=== PATIENT | female | born 1930 | race Caucasian/White ===

== ENCOUNTER 2016-08-28 12:30 | Inpatient (IN) | payer MEDICARE, OTHER ==
[~2016-08-28] VITALS: Ht 154.9 cm; Wt 67.0 kg
[~2016-08-28 12:30] MED LIST: AMLO-20 PO; ASPI-535 PO; BENAZEPRIL PO; BUSP15TA PO; CELE200C PO; DABI150C PO; DOCU50CA4 PO; FLUO20CA22 PO; ISOS30TA5 PO; LOVA10TA63 PO; METO50TA16 PO; MULT-762 PO; OMEP20CA16 PO; OXYC-284 PO; PRAM0.25 PO
[2016-08-28] MEDS ORDERED: ACETAMINOPHEN 325 MG TAB PO ONE (13:30)
[2016-08-28 13:50] LABS: URINE BLOOD (Dip) POC 2+ (NEGATIVE)
--- NOTE | 2016-08-28 14:22 | RADRPT ---
PROCEDURE: CT Brain without contrast. CLINICAL INDICATION: Neurologic deficit TECHNIQUE: A CT of the brain was performed on multidetector high-resolution CT scanner utilizing a xial sections from the skull base through the vertex without contrast. One or more of the following dose reduction techniques were used: Automated exposure control, Adjustment of the mA and/or kV acc ording to patient size, and/or use of iterative reconstruction technique. DOSE: CTDI = 45 mGy and the DLP = 630 mGy-cm. COMPARISON: Head CT 11/30/2013 FINDINGS: Cortical hypoattenuation of the left inferior frontal lobe and left frontal operculum is new from pr ior. No acute intracranial hemorrhage or midline shift. Patchy hypoattenuation of the cerebral white matter is compatible with chronic microvascular ischemic changes. Vascular calcifications. Prominen ce of the cortical sulci and ventricles are related to mild to moderate cerebral volume loss. Opacif ied left maxillary sinus with chronic pj-osteogenesis. IMPRESSION: Cortical hypoattenuation of the left inferior frontal lobe and left frontal operculum is new from pr ior and suspicious for a subacute infarct. Recommend brain MRI for further evaluation. No acute intracranial hemorrhage or midline shift. 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 Chronic left maxillary sinusitis. A call report was made to Dr. BENSON at 08/28/2016 2:21:15 PM. RPTAT: AA .Tang Gordon MD, MD Date Time Electronically viewed and signed by .Tang Gordon MD, MD on 08/28/2016 14:21 .T/
[2016-08-28 14:33] LABS: LACTIC ACID 1.4 mmol/L (0.5-2.2)
[2016-08-28 14:35] LABS: ADD SCAN DIFF NO
[2016-08-28 14:39] LABS: BASOPHILS % 0.4 % (0.0-2.0); EOSINOPHILS % 0.5 % (0.0-7.0); HEMATOCRIT 40.4 % (37.0-47.0); LYMPHOCYTES # 1.2 10^3/ul (0.8-2.9); LYMPHOCYTES % 20.7 % (15.0-51.0); MEAN CORPUSCULAR HGB CONC 32.2 g/dl (32.0-37.0); MEAN CORPUSCULAR VOLUME 96.2 fl (82.0-101.0); MEAN PLATELET VOLUME 10.2 fl (7.4-10.4); MONOCYTE # 1.2 10^3/ul (0.3-0.9); MONOCYTES % 20.7 % (0.0-11.0); NEUTROPHIL # 3.3 10^3/ul (1.6-7.5); NEUTROPHILS % 57.2 % (39.0-77.0); PLATELET COUNT 225 10^3/UL (140-415); RED CELL DISTRIBUTION WIDTH 14.1 % (11.5-14.5); WHITE BLOOD COUNT 5.7 10^3/ul (4.8-10.8)
[2016-08-28 14:47] LABS: ADD UMIC YES; UR ASCORBIC ACID 40 mg/dL (NEGATIVE); UR BILIRUBIN (Dip) NEGATIVE (NEGATIVE); UR BLOOD (Dip) 1+ mg/dL (NEGATIVE); UR CLARITY SLIGHTLY CLOUDY (CLEAR); UR COLOR AMBER (YELLOW); UR GLUCOSE (Dip) NEGATIVE (NEGATIVE); UR KETONES (Dip) TRACE mg/dL (NEGATIVE); UR LEUKOCYTE ESTERASE (Dip) TRACE Leu/ul (NEGATIVE); UR MUCUS FEW /HPF (NONE SEEN); UR NITRITE (Dip) NEGATIVE (NEGATIVE); UR RBC 18 /HPF (0-5); UR SPECIFIC GRAVITY (Dip) 1.026 (1.003-1.030); UR SQUAMOUS EPITHELIAL CELL FEW /HPF (FEW); UR TOTAL PROTEIN (Dip) 1+ mg/dl (NEGATIVE); UR UROBILINOGEN (Dip) 1+ mg/dL (NEGATIVE)
--- NOTE | 2016-08-28 14:50 | RADRPT ---
PROCEDURE: XR Chest. CLINICAL INDICATION: Sepsis TECHNIQUE: Chest AP portable. COMPARISON: CT chest 01/07/2015 FINDINGS: The mediastinal structures are unremarkable. There is calcification of the thoracic aorta (consiste nt with atherosclerosis). There is mild cardiomegaly. The pulmonary vascularity is normal. There is moderate right diaphragmatic elevation. No consolidation is identified. The pleural spaces are unremarkable. There are senescent changes of the axial skeleton. IMPRESSION: Calcification of the thoracic aorta (consistent with atherosclerosis) Mild cardiomegaly No active intrathoracic disease RPTAT: HGDB .Jameson Del Rio MD, Date Time Electronically viewed and signed by .Jameson Del Rio MD, on 08/28/2016 14:49 .B/
[2016-08-28 14:55] LABS: INR 1.03; PROTIME 13.5 Sec (12.2-14.2); PT RATIO 1.1
[2016-08-28 14:56] LABS: PARTIAL THROMBOPLASTIN TIME 33.4 Sec (25.0-35.0)
[2016-08-28 14:59] LABS: ALANINE AMINOTRANSFERASE 43 IU/L (13-69); ALBUMIN 4.7 g/dl (3.3-4.9); ALBUMIN/GLOBULIN RATIO 1.62; ALKALINE PHOSPHATASE 91 IU/L (42-121); ANION GAP 15 (8-16); ASPARTATE AMINO TRANSFERASE 42 IU/L (15-46); BILIRUBIN,INDIRECT 0.6 mg/dl (0-1.1); BILIRUBIN,TOTAL 0.6 mg/dl (0.2-1.3); BLOOD UREA NITROGEN 32 mg/dl (7-20); CALCIUM 9.9 mg/dl (8.4-10.2); CARBON DIOXIDE 27 mmol/L (21-31); CHLORIDE 100 mmol/L (97-110); CREATININE 1.02 mg/dl (0.44-1.00); GLUCOSE 103 mg/dl (70-220); SODIUM 137 mmol/L (135-144); TOTAL PROTEIN 7.6 g/dl (6.1-8.1)
[2016-08-28 15:00] LABS: ETHANOL < 10.0 mg/dl; SALICYLATE < 1.0 mg/dl (5.0-30.0)
[2016-08-28] MEDS ORDERED: METO-448 PO (15:15)
[2016-08-28] MEDS ORDERED: SOLI10TA5 PO (15:16)
[2016-08-28] MEDS ORDERED: HYDR-902 PO (15:16)
[2016-08-28] MEDS ORDERED: LOVA20TA PO (15:17)
[2016-08-28] MEDS ORDERED: OLOP2.5D5 BOTH EYES (15:21)
[2016-08-28] MEDS ORDERED: OLAN2.5T4 PO (15:21)
[2016-08-28] MEDS ORDERED: ALBU18HF INHALATION (15:22)
[2016-08-28] MEDS ORDERED: OMEP20CA16 PO (15:23)
[2016-08-28] MEDS ORDERED: DABI150C PO (15:24)
[2016-08-28] MEDS ORDERED: FLUO40CA PO (15:24)
[2016-08-28] MEDS ORDERED: ASPIRIN 81 MG TAB PO ONE (15:30)
[2016-08-28] MEDS ORDERED: SOD CHLORIDE 0.9% 500 ML IV ONE (15:30)
[2016-08-28 15:32] LABS: BARBITURATES Negative (NEGATIVE); BENZODIAZEPINES Negative (NEGATIVE); CANNABINOIDS Negative (NEGATIVE); COCAINE Negative (NEGATIVE); OPIATES Negative (NEGATIVE); TROPONIN-I < 0.012 ng/ml (0.00-0.12)
[2016-08-28] MEDS ORDERED: HYDROCODONE/APAP (10/325) TAB PO PRN (18:00)
--- NOTE | 2016-08-28 19:24 | HP ---
DATE OF ADMISSION: 08/28/2016 CHIEF COMPLAINT: Confusion, altered mental status. HISTORY OF PRESENT ILLNESS: This 86-year-old female who has a history of paroxysmal atrial fibrillation, hypertension, hypercholesterolemia was noted by her attendant on the day prior to adm ission to be confused and was talking as if she has some delusions or hallucinations. The attendant called my office and was told to bring the patient into the emergency room. However, patient refus ed to be brought into the ER yesterday. This morning, the attendant noticed that she was still talk ing in a confused manner and brought her to the emergency room where the head CT found a subacute st roke. The patient is admitted for altered mental status possibly due to cerebrovascular accident. Of note is that the patient says that she was told by order detailer to discontinue Pradaxa about 3 we eks prior to admission. Patient's attendant and her family also thought that maybe she was confused due to a neighbor's a couple of days prior to admission. The patient also has a history of h allucinations with Percocet, but she has been taking hydrocodone for several months now for her ongo ing diffuse osteoarthritis and lumbar spine and disk disease. PAST MEDICAL HISTORY: 1. Atrial fibrillation. 2. Chronic obstructive pulmonary disease. 3. Bilateral lung nodules. 4. Coronary artery disease. 5. Hypercholesterolemia. 6. Hypertension. 7. Lumbar spine degenerative disk disease. 8. Osteoarthritis. 9. Osteoporosis. 10. Overactive bladder with urinary incontinence. 11. Restless leg syndrome. 12. Right breast cancer status post mastectomy, chemotherapy, and radiation in 2001 and stopped shane oxifen in 2006. 13. Status post total abdominal hysterectomy in 1980. 14. Status post cholecystectomy for gallstone pancreatitis in 2011. 15. Status post right knee arthroscopy and then right knee total replacement in 2012. 16. Major depression. MEDICATIONS: 1. Metoprolol tartrate 25 mg p.o. b.i.d. 2. Pradaxa 150 mg p.o. b.i.d. 3. VESIcare 10 mg p.o. at bedtime. 4. Lovastatin 20 mg p.o. daily. 5. Olanzapine 2.5 mg p.o. daily. 6. Omeprazole 20 mg p.o. b.i.d. 7. Fluoxetine 40 mg p.o. daily. 8. Ventolin HFA 2 puffs q.6 hours as needed for shortness of breath. 9. Ames 10/325 one p.o. t.i.d. as needed for pain. 10. Lasix 20 mg p.o. daily as needed for ankle swelling. 11. Potassium chloride 10 mEq p.o. daily as needed for when she is taking Lasix. 12. Prolia 60 mg injection every 6 months. 13. Pazeo eye drops as needed for allergy. SOCIAL HISTORY: The patient used to smoke. She quit many decades ago. She drinks wine only occasi onally and the patient lives alone in her own apartment. She has no children, but a niece lives in [place]. There is an attendant who comes to her house about 4 hours a day for 4 days a week. FAMILY HISTORY: Patient's mother of unknown cause. She has no siblings, one of her cousins garcia s diabetes, and one has arthritis. PHYSICAL EXAMINATION: GENERAL: Well-developed, well-nourished female who is awake and alert. She is oriented to her own name and recognizes me as her doctor, but does not know the date, year, day, or month, and does not know the precise address where she lives. She does know the street and the city where she lives. VITAL SIGNS: Temperature T-max of 100.6, blood pressure 104/57, pulse of 107, respiration rate 20, O2 saturation 94% on room air. HEENT: Pupils are equally round and reactive. Oropharynx clear. LUNGS: Clear to auscultation bilaterally. No wheezing or rubs. CARDIAC: Irregular irregular. ABDOMEN: Active bowel sounds, soft, nondistended, nontender. EXTREMITIES: No clubbing, cyanosis, or edema. The patient does have brownish pigmentation in the f eet and ankles consistent with stasis dermatitis. NEUROLOGIC: Cranial nerves II through XII grossly intact. Motor: Patient has 4+/5 motor strength on bilateral upper extremities and bilateral lower extremities. Sensory: She is intact to light to uch throughout. Mental status is awake, alert, and only partially oriented. LABORATORY: WBC 5.7, hemoglobin 13.0, hematocrit 40.4, platelet count 225,000. Sodium 137, potassi um 5.0, chloride 100, bicarbonate 27, BUN 32, creatinine 1.02, glucose 103. Liver enzymes within no rmal limits. Troponin is less than 0.012. PT 13.5, INR of 1.03, PTT of 33.4. Her urine shows a pH of 5.0, specific gravity of 1.026. There is 1+ urine protein, 1+ urine ketones, 2+ urine blood, no nitrites or bilirubin, and trace leukocyte esterase. There are 18 red blood cells per high power f ield and 3 WBC with few squamous epithelial and mucus. Urine culture and blood cultures are pending at this time. Her chest x-ray shows calcification of the thoracic aorta consistent with atheroscle rosis. There is mild cardiomegaly. No active intrathoracic disease. Her EKG shows atrial fibrilla tion, rate controlled. Her brain CT without contrast shows cortical hypoattenuation of the left inf erior frontal lobe and left frontal operculum, which is new from prior CT scan and suspicious for a subacute infarct. There are also chronic microvascular disease and intracranial atherosclerosis. T here is also a chronic left maxillary sinusitis. IMPRESSION: 1. Altered mental status, most likely due to recent stroke, but patient does have a dirty urine and will need to admit to monitor the patient overnight. We will also obtain an MRI to clarify the ext ent of the cerebrovascular accident. Check her carotid Dopplers, if it has not been done recently b y cardiology. I will resume patient's Pradaxa for now, but inquire the order detailer regarding maybe starting her on another anticoagulant, if there is a reason why she was taken off of Pradaxa. Will need to rely on family members and attendant to monitor the patient's mental status, since some of her delusions only evident to the family. Apparently patient was saying that she was supposed to be marrying a neighbor who is no longer there and saying some other statements which did not make sens e. We also will go ahead and start her on some IV antibiotics since she did have a low grade temper ature when she came in and her urine is suggestive of a possible urine infection. 2. Other medical problems. Continue current medications. Dictated By: SHERI MORENO MD DP/NTS Conf#: [id number] DID#: [id number]
--- NOTE | 2016-08-28 19:49 | ERA ---
ER Documentation Chief Complaint Date/Time DATE: 08/28/16 Chief Complaint pt confused x 1 day a&o x1, temp 100.6 HPI The patient is a 86-year-old female, presenting to the ER because he has been confused for 1 day according to the caregiver. She is unable to provide any history. The history is obtained from the caregiver. She is forgetful, less talkative. She denies headache, neck pain, chest pain, dyspnea, abdominal pain , vomiting, dysuria, diarrhea, constipation. She does not smoke or drink Past medical history: Hypertension, history of right breast cancer Past surgical history: Right mastectomy ROS All systems reviewed and are negative except as per history of present illness. Medications Home Meds Reported Medications Fluoxetine Hcl* (Fluoxetine Hcl*) 40 Mg Capsule, 40 MG PO DAILY, CAP 08/28/16 Dabigatran Etexilate Mesylate* (Pradaxa*) 150 Mg Capsule, 150 MG PO BID, CAP 08/28/16 Omeprazole* (Omeprazole*) 20 Mg Capsule.dr, 20 MG PO BID, #60 CAP 08/28/16 Albuterol Sulfate* (Ventolin HFA*) 18 Gm Hfa.aer.ad, 2 PUFF INHALATION Q6H Y for PRN, #1 INHALER 08/28/16 Olanzapine* (Zyprexa*) 2.5 Mg Tablet, 2.5 MG PO DAILY, #30 TAB 08/28/16 Olopatadine HCl (Pazeo) 2.5 Ml Drops, 1 DROP BOTH EYES DAILY Y for PRN, BOTTLE 08/28/16 Lovastatin* (Lovastatin*) 20 Mg Tablet, 20 MG PO DAILY, TAB 08/28/16 Hydrocodone/Acetaminophen (Metamora 10-325 Tablet) 1 Each Tablet, 1 EACH PO TID, TAB 08/28/16 Solifenacin* (Vesicare*) 10 Mg Tablet, 10 MG PO QHS, TAB 08/28/16 Metoprolol Tartrate* (Lopressor*) 25 Mg Tab, 25 MG PO BID, #60 TAB 08/28/16 Discontinued Reported Medications Fluoxetine Hcl* (Fluoxetine Hcl*) 20 Mg Capsule, 20 MG PO DAILY, CAP 06/22/14 Omeprazole* (Omeprazole*) 20 Mg Capsule.dr, 20 MG PO DAILY, CAP 06/22/14 Metoprolol Succinate* (Toprol XL*) 50 Mg Tab.er.24h, 50 MG PO DAILY, TAB 06/22/14 Celecoxib* (Celebrex*) 200 Mg Capsule, 200 MG PO DAILY, CAP 07/21/13 Pramipexole* (Pramipexole*) 0.25 Mg Tablet, 0.25 MG PO HS 07/21/13 Lovastatin* (Lovastatin*) 10 Mg Tablet, 20 MG PO HS 07/21/13 Docusate Sodium* (Colace*) 50 Mg Capsule, 100 MG PO HS 07/21/13 Dabigatran Etexilate Mesylate* (Pradaxa*) 150 Mg Capsule, 150 MG PO BID, CAP 07/21/13 Buspirone Hcl* (Buspar*) 15 Mg Tablet, 15 MG PO BID, TAB 07/21/13 Amlodipine-Benazepril (Amlodipine-Benazepril) 1 Cap Capsule, 1 CAP PO DAILY 07/21/13 Isosorbide Mononitrate* (Isosorbide Mononitrate*) 30 Mg Tab.er.24h, 30 MG PO DAILY, TAB 07/21/13 [Benazepril 5-20] No Conflict Check, 1 TAB PO DAILY 07/21/13 Multivitamin (MULTI-VITAMIN DAILY) 1 Each Tablet, 1 EACH PO DAILY 07/21/13 Aspirin Ec (Aspir 81) 81 Mg Tablet.dr, 81 MG PO DAILY 06/08/11 Oxycodone Hcl-Acetaminophen* (Percocet*) 1 Tab Tablet, 1 TAB PO Q6 06/08/11 Allergies Allergies: Coded Allergies: Penicillins (Verified Allergy, Mild, 08/28/16) strawberry (Verified Adverse Reaction, Unknown, RASHES, 08/28/16) PMhx/Soc History of Surgery: No Anesthesia Reaction: No Hx Neurological Disorder: No Hx Respiratory Disorders: No Hx Cardiac Disorders: Yes (HTN, HEART PROBLEM) Hx Psychiatric Problems: No Hx Miscellaneous Medical Probl: No (ARTHRITIS) Hx Alcohol Use: Yes (UNABLE TO VERIFY) Hx Substance Use: No Hx Tobacco Use: No Smoking Status: Never smoker Physical Exam Vitals Vital Signs Date Time Temp Pulse Resp B/P Pulse Ox O2 Delivery O2 Flow Rate FiO2 08/28/16 17:39 98.1 79 23 123/84 93 Room Air 08/28/16 15:25 99.3 93 20 137/91 94 Room Air 08/28/16 12:42 100.6 107 20 104/57 94 Physical Exam Const: No acute distress. Head: Atraumatic. Eyes: Normal Conjunctiva. ENT: Normal External Ears, Nose and Mouth. Neck: Full range of motion. No meningismus. Resp: Irregularly irregular Cardio: Regular rate and rhythm. Abd: Soft, non distended, normal bowel sounds, non tender. Skin: No petechiae or rashes. Back: No midline or flank tenderness. Ext: No cyanosis, or edema. Neur: Awake and alert. No focal deficit. Limited due to her condition Psych: Limited due to the condition Result Diagram: 08/28/16 1415 08/28/16 1415 Results 24 hrs Laboratory Tests Test 08/28/16 13:15 08/28/16 13:20 08/28/16 13:52 08/28/16 14:15 Lactic Acid Level 1.4mmol/L Ammonia 14umol/l Bedside Glucose 101mg/dL Bedside Urine pH (LAB) 6.0 Bedside Urine Protein (LAB) 1+ Bedside Urine Glucose (UA) Negative Bedside Urine Ketones (LAB) 1+ Bedside Urine Blood 2+ Bedside Urine Nitrite (LAB) Negative Bedside Urine Leukocyte Esterase (L Negative White Blood Count 5.710^3/ul Red Blood Count 4.2010^6/ul Hemoglobin 13.0g/dl Hematocrit 40.4% Mean Corpuscular Volume 96.2fl Mean Corpuscular Hemoglobin 31.0pg Mean Corpuscular Hemoglobin Concent 32.2g/dl Red Cell Distribution Width 14.1% Platelet Count 16326^3/UL Mean Platelet Volume 10.2fl Neutrophils % 57.2% Lymphocytes % 20.7% Monocytes % 20.7% Eosinophils % 0.5% Basophils % 0.4% Nucleated Red Blood Cells % 0.0/100WBC Neutrophils # 3.310^3/ul Lymphocytes # 1.210^3/ul Monocytes # 1.210^3/ul Eosinophils # 0.010^3/ul Basophils # 0.010^3/ul Nucleated Red Blood Cells # 0.010^3/ul Prothrombin Time 13.5Sec Prothrombin Time Ratio 1.1 INR International Normalized Ratio 1.03 Activated Partial Thromboplast Time 33.4Sec Urine Color ZONIA Urine Clarity SLIGHTLY CLOUDY Urine pH 5.0 Urine Specific [place] 1.026 Urine Ketones TRACEmg/dL Urine Nitrite NEGATIVEmg/dL Urine Bilirubin NEGATIVEmg/dL Urine Urobilinogen 1+mg/dL Urine Leukocyte Esterase TRACELeu/ul Urine Microscopic RBC 18/HPF Urine Microscopic WBC 3/HPF Urine Squamous Epithelial Cells FEW/HPF Urine Mucus FEW/HPF Urine Hemoglobin 1+mg/dL Urine Glucose NEGATIVEmg/dL Urine Total Protein 1+mg/dl Sodium Level 137mmol/L Potassium Level 5.0mmol/L Chloride Level 100mmol/L Carbon Dioxide Level 27mmol/L Anion Gap 15 Blood Urea Nitrogen 32mg/dl Creatinine 1.02mg/dl Glucose Level 103mg/dl Calcium Level 9.9mg/dl Total Bilirubin 0.6mg/dl Direct Bilirubin 0.00mg/dl Indirect Bilirubin 0.6mg/dl Aspartate Amino Transf (AST/SGOT) 42IU/L Alanine Aminotransferase (ALT/SGPT) 43IU/L Alkaline Phosphatase 91IU/L Troponin I < 0.012ng/ml Total Protein 7.6g/dl Albumin 4.7g/dl Globulin 2.90g/dl Albumin/Globulin Ratio 1.62 Salicylates Level < 1.0mg/dl Urine Opiates Screen Negative Urine Barbiturates Negative Urine Amphetamines Screen Negative Urine Benzodiazepines Screen Negative Urine Cocaine Screen Negative Urine Cannabinoids Negative Ethyl Alcohol Level < 10.0mg/dl Current Medications Medications (Trade) Dose Ordered Sig/Matthew Route PRN Reason Start Time Stop Time Status Last Admin Dose Admin Acetaminophen 650 mg 650 mg ONCE ONCE PO 08/28/16 13:30 08/28/16 13:31 DC 08/28/16 15:20 Sodium Chloride (NS) 500 ml @ 500 mls/hr Q1H ONCE IV 08/28/16 15:30 08/28/16 16:29 DC 08/28/16 15:22 Aspirin (Aspirin) 162 mg ONCE ONCE PO 08/28/16 15:30 08/28/16 15:31 DC 08/28/16 15:21 Albuterol (Proventil (O.r. Use Only)) 2 puff Q6H PRN INH PRN 08/28/16 18:00 UNV Dabigatran (PRADaxa) 150 mg BID PO 08/28/16 21:00 UNV Fluoxetine HCl (Prozac) 40 mg DAILY PO 08/29/16 09:00 UNV Acetaminophen/ Hydrocodone Bitart (Metamora (10/)) 1 tab TID PRN PO pain 08/28/16 18:00 UNV Metoprolol Tartrate (Lopressor) 25 mg BID PO 08/28/16 21:00 UNV Olanzapine (Zyprexa) 2.5 mg DAILY PO 08/29/16 09:00 UNV Solifenacin (Vesicare) 10 mg QHS PO 08/28/16 21:00 UNV Miscellaneous Information 20 mg DAILY PO 08/29/16 09:00 UNV Miscellaneous Information 20 mg BID PO 08/28/16 21:00 UNV Procedures/MDM [place] [id number] Radiology Main Line: [phone] DIAGNOSTIC IMAGING REPORT Patient: INES CYR : 1930 Age: 86 Sex: F MR #: [id number] DOS: 08/28/16 1310 Ordering MD: RADHA BENSON MD Location: E/R Room/Bed: PROCEDURE: XR Chest. CLINICAL INDICATION: Sepsis TECHNIQUE: Chest AP portable. COMPARISON: CT chest 01/07/2015 FINDINGS: The mediastinal structures are unremarkable. There is calcification of the thoracic aorta (consistent with atherosclerosis). There is mild cardiomegaly. The pulmonary vascularity is normal. There is moderate right diaphragmatic elevation. No consolidation is identified. The pleural spaces are unremarkable. There are senescent changes of the axial skeleton. IMPRESSION: Calcification of the thoracic aorta (consistent with atherosclerosis) Mild cardiomegaly No active intrathoracic disease RPTAT: HGDB .Jameson Del Rio MD, Date Time Electronically viewed and signed by .Jameson Del Rio MD, on 08/28/2016 14:49 .B/ CC: RADHA BENSON MD [place] [id number] Radiology Main Line: [phone] DIAGNOSTIC IMAGING REPORT Patient: INES CYR : 1930 Age: 86 Sex: F [id number] DOS: 08/28/16 1310 Ordering MD: RADHA BENSON MD Location: E/R Room/Bed: PROCEDURE: CT Brain without contrast. CLINICAL INDICATION: Neurologic deficit TECHNIQUE: A CT of the brain was performed on multidetector high-resolution CT scanner utilizing axial sections from the skull base through the vertex without contrast. One or more of the following dose reduction techniques were used: Automated exposure control, Adjustment of the mA and/or kV according to patient size, and/or use of iterative reconstruction technique. DOSE: CTDI = 45 mGy and the DLP = 630 mGy-cm. COMPARISON: Head CT 11/30/2013 FINDINGS: Cortical hypoattenuation of the left inferior frontal lobe and left frontal operculum is new from prior. No acute intracranial hemorrhage or midline shift. Patchy hypoattenuation of the cerebral white matter is compatible with chronic microvascular ischemic changes. Vascular calcifications. Prominence of the cortical sulci and ventricles are related to mild to moderate cerebral volume loss. Opacified left maxillary sinus with chronic pj-osteogenesis. IMPRESSION: Cortical hypoattenuation of the left inferior frontal lobe and left frontal operculum is new from prior and suspicious for a subacute infarct. Recommend brain MRI for further evaluation. No acute intracranial hemorrhage or midline shift. 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 Chronic left maxillary sinusitis. A call report was made to Dr. BENSON at 08/28/2016 2:21:15 PM. RPTAT: AA .Tang Gordon MD, MD Date Time Electronically viewed and signed by .Tang Gordon MD, MD on 08/28/2016 14:21 .T/ CC: RADHA BENSON MD EKG: Read by emergency physician Rate/Rhythm: Atrial fibrillation 81 beats/min QRS, ST, T-waves: No ST elevation, no T inversion Impression: Abnormal EKG MEDICAL MAKING DECISION: The patient is a 86-year-old female, presenting with acute encephalopathy most likely due to acute CVA, acute dehydration. She was treated with Tylenol for fever, normal saline 500 mL for acute dehydration, aspirin 160 mg p.o. for acute CVA The differential diagnoses considered include but are not limited to medication non-compliance, alcohol intoxication or withdrawal, drug intoxication or withdrawal, endocrine disorder, trauma, CVA, tumor, metabolic encephalopathy, septic encephalopathy. Critical Care: Time: 35 minutes excluding all billable procedures. Treatments/Evaluations: Close monitoring and treatment of unstable vital signs, cardiorespiratory, and neurologic status, while maintaining tight balance of fluid, respiratory, and cardiac interventions. Departure Diagnosis: Primary Impression: Acute CVA (cerebrovascular accident) Additional Impressions: Encephalopathy Dehydration Condition: Stable Comments I discussed the findings with the patient. I discussed the patient with her physician Dr. De La Garza who was made aware of the lab, the treatment, the patient condition. The patient is admitted to telemetry at 3:05 PM RAHDA BENSON MD Aug 28, 2016 19:49
[2016-08-28] MEDS: SOLIFENACIN 5 MG TAB PO SCH (21:00)
[2016-08-28] MEDS: DABIGATRAN 150 MG CAP PO SCH (21:00)
[2016-08-28] MEDS: METOPROLOL 25 MG TAB PO SCH (21:00)
[2016-08-28] MEDS ORDERED: ALBUTEROL 18 GM INHALER INH PRN (21:30)
[2016-08-28] MEDS: PANTOPRAZOLE (EC) 40 MG TAB PO SCH (21:30)
[2016-08-28] MEDS ORDERED: ATORVASTATIN 10 MG TAB PO SCH (21:30)
[2016-08-29] VITALS (14 sets, daily range): BP systolic 110–129; BP diastolic 58–68; PULSE 81–104; RESP 16–20; TEMP 99; Ht 154.9 cm; Wt 67.0 kg
[2016-08-29] MEDS: PANTOPRAZOLE (EC) 40 MG TAB PO SCH ×2 (05:24→17:51)
[2016-08-29] MEDS: OLANZAPINE 2.5 MG TAB PO SCH (10:03)
[2016-08-29] MEDS: DABIGATRAN 150 MG CAP PO SCH ×2 (10:03→22:12)
[2016-08-29] MEDS: FLUOXETINE 20 MG CAP PO SCH (10:03)
[2016-08-29] MEDS: METOPROLOL 25 MG TAB PO SCH ×2 (10:05→21:42)
--- NOTE | 2016-08-29 11:30 | CONS ---
Date/Time of Note Date/Time of Note DATE: 08/29/16 TIME: 11:23 Assessment/Plan Assessment/Plan Additional Assessment/Plan Possible CVA Encephalopathy Paroxysmal atrial flutter/fibrillation Hypertension Dyslipidemia COPD -Patient admitted with confusion with CT head possible evidence of CVA. Awaiting MRI brain. In discussion with patient's niece Juliana on the phone and review of outpatient progress note from our colleague Dr. Kahn, patient complaining of significant lower extremity bruising and edema. Plan was to hold anticoagulation for a few months to evaluate improvement. As per the niece Juliana, the lower examinee discoloration and bruising improved significantly but now with possible evidence of acute CVA. Agree with restarting anticoagulation, statin therapy, check carotid Dopplers and echocardiogram. Maintain on telemetry monitoring. 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 As per the niece Juliana (who I spoke with over the phone), patient with issues of confusion and hallucinations on the day prior to admission. There is no clear evidence of any weakness. There was no loss of consciousness. Because of the above, patient was brought to the emergency room for evaluation and care. In discussion with the patient via greensman, she is not sure why she is here in the hospital where she is at the current time. She denies any chest pain, shortness of breath, palpitations or dizziness. 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 Exam/Review of Systems Vital Signs Vitals Vital Signs Date Time Temp Pulse Resp B/P Pulse Ox O2 Delivery O2 Flow Rate FiO2 08/29/16 11:12 98.1 80 20 126/68 97 08/29/16 02:30 Room Air Intake and Output 08/28/16 08/28/16 08/29/16 15:00 23:00 07:00 Intake Total 500 ml 100 ml Balance 500 ml 100 ml Exam Alert to person, no apparent distress, intermittently following commands Head: normocephalic Neck: supple Respiratory: other (Coarse breath sounds bilaterally, no wheezing) Cardiovascular: irregular rhythm, other (S1-S2 heard) Gastrointestinal: bowel sounds, non-tender, soft Extremities: edema (Mild), other (Skin discoloration bilateral feet) Results Result Diagram: 08/28/16 1415 08/28/16 1415 Results 24 hrs Laboratory Tests Test 08/28/16 13:15 08/28/16 13:20 08/28/16 13:52 08/28/16 14:15 Lactic Acid Level 1.4 Ammonia 14 Bedside Glucose 101 Bedside Urine pH (LAB) 6.0 Bedside Urine Protein (LAB) 1+ H Bedside Urine Glucose (UA) Negative Bedside Urine Ketones (LAB) 1+ H Bedside Urine Blood 2+ H Bedside Urine Nitrite (LAB) Negative Bedside Urine Leukocyte Esterase (L Negative White Blood Count 5.7 Red Blood Count 4.20 Hemoglobin 13.0 Hematocrit 40.4 Mean Corpuscular Volume 96.2 Mean Corpuscular Hemoglobin 31.0 Mean Corpuscular Hemoglobin Concent 32.2 Red Cell Distribution Width 14.1 Platelet Count 225 Mean Platelet Volume 10.2 Neutrophils % 57.2 Lymphocytes % 20.7 Monocytes % 20.7 H Eosinophils % 0.5 Basophils % 0.4 Nucleated Red Blood Cells % 0.0 Neutrophils # 3.3 Lymphocytes # 1.2 Monocytes # 1.2 H Eosinophils # 0.0 Basophils # 0.0 Nucleated Red Blood Cells # 0.0 Prothrombin Time 13.5 Prothrombin Time Ratio 1.1 INR International Normalized Ratio 1.03 Activated Partial Thromboplast Time 33.4 Urine Color ZONIA Urine Clarity SLIGHTLY CLOUDY A Urine pH 5.0 Urine Specific [place] 1.026 Urine Ketones TRACE A Urine Nitrite NEGATIVE Urine Bilirubin NEGATIVE Urine Urobilinogen 1+ H Urine Leukocyte Esterase TRACE A Urine Microscopic RBC 18 H Urine Microscopic WBC 3 Urine Squamous Epithelial Cells FEW Urine Mucus FEW A Urine Hemoglobin 1+ H Urine Glucose NEGATIVE Urine Total Protein 1+ H Sodium Level 137 Potassium Level 5.0 Chloride Level 100 Carbon Dioxide Level 27 Anion Gap 15 Blood Urea Nitrogen 32 H Creatinine 1.02 H Glucose Level 103 Calcium Level 9.9 Total Bilirubin 0.6 Direct Bilirubin 0.00 Indirect Bilirubin 0.6 Aspartate Amino Transf (AST/SGOT) 42 Alanine Aminotransferase (ALT/SGPT) 43 Alkaline Phosphatase 91 Troponin I < 0.012 Total Protein 7.6 Albumin 4.7 Globulin 2.90 Albumin/Globulin Ratio 1.62 Salicylates Level < 1.0 L Urine Opiates Screen Negative Urine Barbiturates Negative Urine Amphetamines Screen Negative Urine Benzodiazepines Screen Negative Urine Cocaine Screen Negative Urine Cannabinoids Negative Ethyl Alcohol Level < 10.0 Test 08/28/16 21:12 08/28/16 23:39 Lactic Acid Level 1.2 2.0 Medications Medications Current Medications Dabigatran (PRADaxa) 150 mg BID PO Last administered on 08/29/16 10:03; Admin Dose 150 MG; Start 08/28/16 at 21:00 Fluoxetine HCl (Prozac) 40 mg DAILY PO Last administered on 08/29/16 10:03; Admin Dose 40 MG; Start 08/29/16 at 09:00 Acetaminophen/ Hydrocodone Bitart ([place] (10/325)) 1 tab TID PRN PO pain; Start 08/28/16 at 18:00 Metoprolol Tartrate (Lopressor) 25 mg BID PO Last administered on 08/29/16 10: 05; Admin Dose 25 MG; Start 08/28/16 at 21:00 Olanzapine (Zyprexa) 2.5 mg DAILY PO Last administered on 08/29/16 10:03; Admin Dose 2.5 MG; Start 08/29/16 at 09:00 Solifenacin (Vesicare) 10 mg QHS PO Last administered on 08/28/16 21:00; Admin Dose 10 MG; Start 08/28/16 at 21:00 Atorvastatin Calcium (Lipitor) 10 mg DAILY@21 PO Last administered on 21:30; Admin Dose 10 MG; Start 08/28/16 at 21:30 Pantoprazole (Protonix Tab) 40 mg BID@06,18 PO Last administered on 08/29/16 05:24; Admin Dose 40 MG; Start 08/28/16 at 21:30 Procedures Procedures ECG demonstrates atrial flutter 81 bpm, QRS 84 ms, nonspecific STT wave abnormalities Zeb Quintero DO Aug 29, 2016 11:30
[2016-08-29] MEDS ORDERED: VANCOMYCIN IV PER PHARMACY XX SCH (18:00)
[2016-08-29] MEDS ORDERED: VANCOMYCIN 1.25 GM in SOD CHLORIDE 0.9% 250 ML IVPB SCH (20:00)
[2016-08-29] MEDS ORDERED: ATORVASTATIN 10 MG TAB PO SCH (21:00)
[2016-08-29] MEDS: ATORVASTATIN 80 MG TAB PO SCH (21:41)
[2016-08-29] MEDS: SOLIFENACIN 5 MG TAB PO SCH (22:12)
--- NOTE | 2016-08-29 22:48 | PN ---
Date/Time of Note Date/Time of Note DATE: 08/29/16 TIME: 22:31 Assessment/Plan VTE Prophylaxis VTE Prophylaxis Intervention: other Lines/Catheters IV Catheter Type (from Nrs): Saline Lock Urinary Cath still in place: No Assessment/Plan Assessment/Plan 1. Altered mental status. Maybe due to sub acute CVA as seen on CT or due to infection. Awaiting the results of head MRI and start IV vancomycin for the positive blood cultures. 2.Weakness. Request physical therapy eval for ambulation 3.Atrial fibrillation. Resuming Pradaxa. Subjective 24 Hr Interval Summary Free Text/Dictation patient is awake and alert and oriented to person and place but not to time. Exam/Review of Systems Vital Signs Vitals Vital Signs Date Time Temp Pulse Resp B/P Pulse Ox O2 Delivery O2 Flow Rate FiO2 08/29/16 20:51 97.6 87 16 119/58 92 08/29/16 02:30 Room Air Intake and Output 08/28/16 08/28/16 08/29/16 15:00 23:00 07:00 Intake Total 500 ml 100 ml Balance 500 ml 100 ml Exam Constitutional: well developed Psych: nl mood/affect Respiratory: clear to auscultation Cardiovascular: irregular rhythm Gastrointestinal: soft Musculoskeletal: nl extremities to inspection Neurological: nl speech Results Result Diagram: 08/28/16 1415 08/28/16 1415 Results 24 hrs Laboratory Tests Test 08/28/16 23:39 Lactic Acid Level 2.0 Medications Medications Current Medications Dabigatran (PRADaxa) 150 mg BID PO Last administered on 08/29/16 22:12; Admin Dose 150 MG; Start 08/28/16 at 21:00 Fluoxetine HCl (Prozac) 40 mg DAILY PO Last administered on 08/29/16 10:03; Admin Dose 40 MG; Start 08/29/16 at 09:00 Acetaminophen/ Hydrocodone Bitart ([place] (10/325)) 1 tab TID PRN PO pain; Start 08/28/16 at 18:00 Metoprolol Tartrate (Lopressor) 25 mg BID PO Last administered on 08/29/16 21: 42; Admin Dose 25 MG; Start 08/28/16 at 21:00 Olanzapine (Zyprexa) 2.5 mg DAILY PO Last administered on 08/29/16 10:03; Admin Dose 2.5 MG; Start 08/29/16 at 09:00 Solifenacin (Vesicare) 10 mg QHS PO Last administered on 08/29/16 22:12; Admin Dose 10 MG; Start 08/28/16 at 21:00 Pantoprazole (Protonix Tab) 40 mg BID@06,18 PO Last administered on 08/29/16 17:51; Admin Dose 40 MG; Start 08/28/16 at 21:30 Aspirin (Aspirin) 81 mg DAILY PO ; Start 08/30/16 at 09:00 Atorvastatin Calcium 80 mg 80 mg DAILY@21 PO Last administered on 08/29/16 21: 41; Admin Dose 80 MG; Start 08/29/16 at 21:00 Vancomycin HCl 1.25 gm/Sodium Chloride 250 ml @ 83.333 mls/ hr NOW IVPB Last administered on 08/29/16 21:41; Admin Dose 83.333 MLS/HR; Start 08/29/16 at 20: 00; Stop 08/29/16 at 23:00 Vancomycin HCl (Vancocin) 250 ml @ 125 mls/hr Q24H IVPB ; Start 08/30/16 at 20: 00 SHERI MORENO MD Aug 29, 2016 22:44
[2016-08-30] VITALS (11 sets, daily range): BP systolic 79–127; BP diastolic 54–80; PULSE 73–84; RESP 17–20
--- NOTE | 2016-08-30 03:09 | RADRPT ---
PROCEDURE: Doppler US Carotids. CLINICAL INDICATION: Stroke TECHNIQUE: Multiple sonographic of the carotid bifurcation region and vertebral arteries were obta ined utilizing price scale, duplex and color-flow imaging. The images were reviewed on a PACS worksta tion. Stenoses were measured using velocity criteria that are extrapolated from diameter data as def ined by the Society of Radiologists in Ultrasound Consensus Conference Radiology 2003; 229;340-346. This study does indirectly reference the measurement of the distal ICA diameter as the denominator f or stenosis measurement, where measured. COMPARISON: None FINDINGS: Evaluation of the right carotid system shows there is minimal intimal medial thickening. No signifi cant plaque formation. Evaluation of the left carotid system shows there is minimal intimal medial thickening. No signific ant plaque formation.. There is antegrade flow within the vertebral arteries bilaterally. RIGHT CAROTID MEASUREMENTS: Common Carotid Wvrjcs07.2 (cm/sec) Internal Carotid Artery - spcxhiab73.7 (cm/sec) Internal Carotid Artery - mid55.9 (cm/sec) Internal Carotid Artery - vyeesr61.9 (cm/sec) Internal Carotid/Common Carotid0.9 LEFT CAROTID MEASUREMENTS: Common Carotid Artery 54.5 (cm/sec) Internal Carotid Artery - proximal 59.4 (cm/sec) Internal Carotid Artery - mid 54.7 (cm/sec) Internal Carotid Artery - distal 53.2 (cm/sec) Internal Carotid/Common Carotid 1 point Y IMPRESSION: Minimal intimal medial thickening. No hemodynamically significant stenosis. Antegrade flow in the vertebral arteries. RPTAT: HLBE Physician He Date Time Electronically viewed and signed by Physician He on 08/30/2016 03:08 DELFINO/
[2016-08-30] MEDS: PANTOPRAZOLE (EC) 40 MG TAB PO SCH ×2 (05:37→18:08)
[2016-08-30 07:57] LABS: ADD SCAN DIFF NO
[2016-08-30 08:05] LABS: BASOPHILS % 0.2 % (0.0-2.0); EOSINOPHILS % 0.5 % (0.0-7.0); HEMATOCRIT 40.5 % (37.0-47.0); LYMPHOCYTES # 0.9 10^3/ul (0.8-2.9); LYMPHOCYTES % 20.7 % (15.0-51.0); MEAN CORPUSCULAR HGB CONC 32.1 g/dl (32.0-37.0); MEAN CORPUSCULAR VOLUME 96.7 fl (82.0-101.0); MONOCYTE # 0.7 10^3/ul (0.3-0.9); MONOCYTES % 16.1 % (0.0-11.0); NEUTROPHIL # 2.7 10^3/ul (1.6-7.5); PLATELET COUNT 185 10^3/UL (140-415); RED BLOOD COUNT 4.19 10^6/ul (4.20-5.40); RED CELL DISTRIBUTION WIDTH 14.1 % (11.5-14.5); WHITE BLOOD COUNT 4.4 10^3/ul (4.8-10.8)
[2016-08-30 09:08] LABS: CALCIUM 8.7 mg/dl (8.4-10.2); CREATININE 0.77 mg/dl (0.44-1.00); POTASSIUM 4.5 mmol/L (3.5-5.1)
[2016-08-30] MEDS: METOPROLOL 25 MG TAB PO SCH ×2 (09:34→21:30)
[2016-08-30] MEDS: OLANZAPINE 2.5 MG TAB PO SCH (09:34)
[2016-08-30] MEDS: DABIGATRAN 150 MG CAP PO SCH ×2 (09:34→21:28)
[2016-08-30] MEDS: ASPIRIN 81 MG TAB PO SCH (09:34)
[2016-08-30] MEDS: FLUOXETINE 20 MG CAP PO SCH (09:34)
[2016-08-30] MEDS: LEVALBUTEROL (NEB) 0.63 MG/3 ML AMP HHN SCH ×2 (10:13→17:21)
--- NOTE | 2016-08-30 10:45 | RADRPT ---
PROCEDURE: XR Chest. CLINICAL INDICATION: Increase congestion TECHNIQUE: PA and lateral views of the chest were obtained COMPARISON: Chest 11/30/2013 FINDINGS: The right hemidiaphragm remains elevated. The heart is normal limits in size. There is atheroscler osis of the thoracic aorta. There is no evidence of pulmonary vascular congestion acute lung consol idation pleural effusions or pneumothorax. IMPRESSION: No evidence of congestive heart failure or pneumonia. RPTAT:AAJJ Physician Gasper Date Time Electronically viewed and signed by Physician Gasper on 08/30/2016 10:45 BM/
--- NOTE | 2016-08-30 14:49 | PN ---
Date/Time of Note Date/Time of Note DATE: 08/30/16 TIME: 14:46 Assessment/Plan VTE Prophylaxis VTE Prophylaxis Intervention: SCD's Lines/Catheters IV Catheter Type (from Nrs): Saline Lock Urinary Cath still in place: No Assessment/Plan Assessment/Plan Possible CVA Encephalopathy Paroxysmal atrial flutter/fibrillation Hypertension Dyslipidemia COPD -Patient on anticoagulation: in the past, severe bruising with AC , so was off AC -Continue current therapy - back on pradaxa -bp stable Subjective 24 Hr Interval Summary Free Text/Dictation The patient with no change overnight Exam/Review of Systems Vital Signs Vitals Vital Signs Date Time Temp Pulse Resp B/P Pulse Ox O2 Delivery O2 Flow Rate FiO2 08/30/16 12:00 78 08/30/16 11:51 98.7 18 87/62 97 08/30/16 10:14 Nasal Cannula 2.0 Intake and Output 08/29/16 08/29/16 08/30/16 15:00 23:00 07:00 Intake Total 780 ml 490 ml Balance 780 ml 490 ml Results Result Diagram: 08/30/16 0650 08/30/16 0650 Results 24 hrs Laboratory Tests Test 08/30/16 06:50 White Blood Count 4.4 #L Red Blood Count 4.19 L Hemoglobin 13.0 Hematocrit 40.5 Mean Corpuscular Volume 96.7 Mean Corpuscular Hemoglobin 31.0 Mean Corpuscular Hemoglobin Concent 32.1 Red Cell Distribution Width 14.1 Platelet Count 185 Mean Platelet Volume 10.0 Neutrophils % 62.0 Lymphocytes % 20.7 Monocytes % 16.1 H Eosinophils % 0.5 Basophils % 0.2 Nucleated Red Blood Cells % 0.0 Neutrophils # 2.7 Lymphocytes # 0.9 Monocytes # 0.7 Eosinophils # 0.0 Basophils # 0.0 Nucleated Red Blood Cells # 0.0 Erythrocyte Sedimentation Rate 21 Sodium Level 136 Potassium Level 4.5 Chloride Level 102 Carbon Dioxide Level 26 Anion Gap 13 Blood Urea Nitrogen 18 # Creatinine 0.77 Glucose Level 96 Calcium Level 8.7 Medications Medications Current Medications Dabigatran (PRADaxa) 150 mg BID PO Last administered on 08/30/16 09:34; Admin Dose 150 MG; Start 08/28/16 at 21:00 Fluoxetine HCl (Prozac) 40 mg DAILY PO Last administered on 08/30/16 09:34; Admin Dose 40 MG; Start 08/29/16 at 09:00 Acetaminophen/ Hydrocodone Bitart ([place] (10/325)) 1 tab TID PRN PO pain; Start 08/28/16 at 18:00 Metoprolol Tartrate (Lopressor) 25 mg BID PO Last administered on 08/30/16 09: 34; Admin Dose 25 MG; Start 08/28/16 at 21:00 Olanzapine (Zyprexa) 2.5 mg DAILY PO Last administered on 08/30/16 09:34; Admin Dose 2.5 MG; Start 08/29/16 at 09:00 Solifenacin (Vesicare) 10 mg QHS PO Last administered on 08/29/16 22:12; Admin Dose 10 MG; Start 08/28/16 at 21:00 Pantoprazole (Protonix Tab) 40 mg BID@06,18 PO Last administered on 08/30/16 05:37; Admin Dose 40 MG; Start 08/28/16 at 21:30 Aspirin (Aspirin) 81 mg DAILY PO Last administered on 08/30/16 09:34; Admin Dose 81 MG; Start 08/30/16 at 09:00 Atorvastatin Calcium 80 mg 80 mg DAILY@21 PO Last administered on 08/29/16 21: 41; Admin Dose 80 MG; Start 08/29/16 at 21:00 Vancomycin HCl (Vancocin) 250 ml @ 125 mls/hr Q24H IVPB ; Start 08/30/16 at 20: 00 JED BONILLA MD Aug 30, 2016 14:49
--- NOTE | 2016-08-30 15:52 | RADRPT ---
Echocardiogram Report Patient Name: INES CYR Gender: Female Date: 1930 Study Date: 29-Aug-2016 Metal Sprayer: Giovanni [facility] Location: [id number] Ref. Physician: RADHA VELASQUEZ Quality: Technically Difficult Study Procedures: Transthoracic echocardiogram with complete 2D, M-Mode, and doppler examination. Indications: Cerebrovascular Accident, a.fib. 2D/M Mode Doppler Measurement Value Normal Ranges Measurement Value Normal Ranges LVIDd 2D 4.1 3.5 - 5.6 cm AV Peak Johann 1.1 m/sec LVIDs 2D 3.3 2.1 - 4.1 cm AV Peak PG 4.8 mmHg LVPWd 2D 1.3 0.6 - 1.1 cm AI Peak PG 19.1 mmHg IVSd 2D 1.3 0.6 - 1.1 cm AI Peak Johann 2.2 m/sec AoR Diam 2D 2.8 2.0 - 3.7 cm AI PHT 728.1 msec EDV 2D 73.9 cm3 LVOT Peak Johann 0.8 m/sec ESV 2D 34.6 cm3 LVOT Peak PG 2.3 mmHg LA Dimen 2D 4.3 2.3 - 4.0 cm TR Peak Johann 3.5 m/sec TR Peak PG 47.7 mmHg RVSP 51.0 mmHg Findings Left Ventricle: Lower limits of normal systolic function. Normal left ventricular cavity size. Moderate concentric left ventricular hypertrophy. Ejection fraction is visually estimated at 45 %. Right Ventricle: Normal right ventricular systolic function. Mild enlargement of right ventricle. Left Atrium: There is moderate enlargement of left atrium. Right Atrium: The right atrium is normal in size. Mitral Valve: Mitral valve leaflets appear mildly thickened. Mild mitral annular calcification. Trace mitral regurgitation. Aortic Valve: Aortic sclerosis without stenosis. Mild aortic valve regurgitation. Tricuspid Valve: Normal appearance of the tricuspid valve. Estimated peak PA systolic pressure 51 mmHg. There is mild tricuspid regurgitation. Pulmonic Valve: Pulmonic valve not well visualized. There is trace pulmonic regurgitation. Pericardium: Normal pericardium with no significant pericardial effusion. Aorta: Normal aortic root. IVC: Normal size and normal respiratory collapse consistent with normal right atrial pressure. Conclusions 1.Lower limits of normal systolic function. Normal left ventricular cavity size. Moderate concentric left ventricular hypertrophy. Ejection fraction is visually estimated at 45 %. 2.Mitral valve leaflets appear mildly thickened. Mild mitral annular calcification. Trace mitral regurgitation. 3.Aortic sclerosis without stenosis. Mild aortic valve regurgitation. 4.Normal appearance of the tricuspid valve. Estimated peak PA systolic pressure 51 mmHg. There is mild tricuspid regurgitation. 5.Pulmonic valve not well visualized. There is trace pulmonic regurgitation. 6.Normal pericardium with no significant pericardial effusion. Electronically Signed By: Terrell Senior 30-Aug-2016 15:51:40 -0700 Patient Name: INES CYR Study Date: 29-Aug-2016 [id number]
--- NOTE | 2016-08-30 15:56 | PN ---
Date/Time of Note Date/Time of Note DATE: 08/30/16 TIME: 15:44 Assessment/Plan VTE Prophylaxis VTE Prophylaxis Intervention: other Lines/Catheters IV [facility]from [facility] Saline Lock Urinary Cath still in place: No Assessment/Plan Assessment/Plan 1.Altered mental status- CVA vs infection. Awaiting head mri and carotid dopplers. Positive blood culture may be contamination. Will consult ID for further management. 2. Pulmonary congestion. Bedside swallow was normal but will check video swallow since patient had acute congestion after breakfast. Chest xray normal but lungs sounds crackly. Continue xopenex for now. 3. Atrial fibrillation . Now back on Pradaxa which is covered on her insurance. Subjective 24 Hr Interval Summary Free Text/Dictation Patient had severe cough and congestion this am with transient decrease in blood pressure and O2 saturation. Ok now. Was able to ambulate 150ft with physical therapy. Exam/Review of Systems Vital Signs Vitals Vital Signs Date Time Temp Pulse Resp B/P Pulse Ox O2 Delivery O2 Flow Rate FiO2 08/30/16 12:00 78 08/30/16 11:51 98.7 18 87/62 97 08/30/16 10:14 Nasal Cannula 2.0 Intake and Output 08/29/16 08/29/16 08/30/16 15:00 23:00 07:00 Intake Total 780 ml 490 ml Balance 780 ml 490 ml Exam Well developed, sleeping but arousable, oriented to name place and year. Eyes: nl conjunctiva, nl sclera ENMT: mucosa pink and moist Neck: non-tender, supple Respiratory: crackles/rales, No wheezing Cardiovascular: irregular rhythm Gastrointestinal: nl liver, spleen, non-tender, soft Musculoskeletal: nl extremities to inspection Results Result Diagram: 08/30/16 0650 08/30/16 0650 Results 24 hrs Laboratory Tests Test 08/30/16 06:50 White Blood Count 4.4 #L Red Blood Count 4.19 L Hemoglobin 13.0 Hematocrit 40.5 Mean Corpuscular Volume 96.7 Mean Corpuscular Hemoglobin 31.0 Mean Corpuscular Hemoglobin Concent 32.1 Red Cell Distribution Width 14.1 Platelet Count 185 Mean Platelet Volume 10.0 Neutrophils % 62.0 Lymphocytes % 20.7 Monocytes % 16.1 H Eosinophils % 0.5 Basophils % 0.2 Nucleated Red Blood Cells % 0.0 Neutrophils # 2.7 Lymphocytes # 0.9 Monocytes # 0.7 Eosinophils # 0.0 Basophils # 0.0 Nucleated Red Blood Cells # 0.0 Erythrocyte Sedimentation Rate 21 Sodium Level 136 Potassium Level 4.5 Chloride Level 102 Carbon Dioxide Level 26 Anion Gap 13 Blood Urea Nitrogen 18 # Creatinine 0.77 Glucose Level 96 Calcium Level 8.7 Medications Medications Current Medications Dabigatran (PRADaxa) 150 mg BID PO Last administered on 08/30/16 09:34; Admin Dose 150 MG; Start 08/28/16 at 21:00 Fluoxetine HCl (Prozac) 40 mg DAILY PO Last administered on 08/30/16 09:34; Admin Dose 40 MG; Start 08/29/16 at 09:00 Acetaminophen/ Hydrocodone Bitart ([place] (10/325)) 1 tab TID PRN PO pain; Start 08/28/16 at 18:00 Metoprolol Tartrate (Lopressor) 25 mg BID PO Last administered on 08/30/16 09: 34; Admin Dose 25 MG; Start 08/28/16 at 21:00 Olanzapine (Zyprexa) 2.5 mg DAILY PO Last administered on 08/30/16 09:34; Admin Dose 2.5 MG; Start 08/29/16 at 09:00 Solifenacin (Vesicare) 10 mg QHS PO Last administered on 08/29/16 22:12; Admin Dose 10 MG; Start 08/28/16 at 21:00 Pantoprazole (Protonix Tab) 40 mg BID@06,18 PO Last administered on 08/30/16 05:37; Admin Dose 40 MG; Start 08/28/16 at 21:30 Aspirin (Aspirin) 81 mg DAILY PO Last administered on 08/30/16 09:34; Admin Dose 81 MG; Start 08/30/16 at 09:00 Atorvastatin Calcium 80 mg 80 mg DAILY@21 PO Last administered on 08/29/16 21: 41; Admin Dose 80 MG; Start 08/29/16 at 21:00 Vancomycin HCl (Vancocin) 250 ml @ 125 mls/hr Q24H IVPB ; Start 08/30/16 at 20: 00 Procedures Procedures Awaiting head MRI and carotid dopplers SHERI MORENO MD Aug 30, 2016 15:55
--- NOTE | 2016-08-30 16:29 | CONS ---
DATE OF ADMISSION: 08/28/2016 DATE OF CONSULTATION: 08/30/2016 TYPE OF CONSULTATION: Infectious disease. REASON FOR CONSULTATION: Antibiotic management. HISTORY OF PRESENT ILLNESS: Meghana Ruelas is an 86-year-old female who comes in with confusion an d altered mental status and is being seen for antibiotic management. She is an 86-year-old female with paroxysmal atrial fibrillation. She has numerous problems includin. Atrial fibrillation. 2. Chronic obstructive pulmonary disease. 3. Bilateral lung nodules. 4. Coronary artery disease. 5. Hypercholesterolemia. 6. Hypertension. 7. Degenerative disk disease of the spine. 8. Osteoarthritis and osteoporosis. 9. Urinary incontinence. 10. Restless legs syndrome. 11. Right breast cancer status post mastectomy, chemotherapy and radiation therapy. 12. Status post total abdominal hysterectomy. 13. Status post cholecystectomy for gallstone pancreatitis in 2011. 14. Status post right knee arthroscopy and then right knee total replacement in 2012. 15. Major depression. The patient comes in confused to the emergency room, where a head CT found a subacute stroke. The p alayna was admitted for altered level of consciousness due to a cerebrovascular accident. The patie nt was told by the high school french teacher to discontinue Pradaxa about 3 weeks ago prior to admission. She al so has a history of hallucinations and may have been confused due to a neighbor's a few days a go. She was on hydrocodone for several months also for pain. On admission, her white count was 5.7 , H and H of 13 and 40.4, platelet count 225,000. BUN and creatinine are 32/1.02, glucose 103. Uri ne showed no nitrites, trace leukocyte esterase, only 3 white cells per high-power field. PAST MEDICAL HISTORY: Operations as outlined. FAMILY HISTORY: Noncontributory. SOCIAL HISTORY: She does not smoke, drink or abuse drugs. ALLERGIES: NONE TO PENICILLIN, SULFA OR FOODS. MEDICATIONS: Per chart. REVIEW OF SYSTEMS: As per HPI. PHYSICAL EXAMINATION: GENERAL: The patient is a well-developed, well-nourished female, who is awake, responsive, in no acute distress. VITAL SIGNS: Stable. She is afebrile. T-max is 100.6. SKIN: Without generalized rash. HEENT: Within normal limits. NECK: Supple. LYMPH NODES: None palpable. LUNGS: Clear to P and A. HEART: Irregularly irregular rhythm. ABDOMEN: Soft, nontender, without organosplenomegaly or masses. EXTREMITIES: Without cyanosis, clubbing, or edema. RECTAL AND GENITAL EXAM: Deferred. NEUROLOGICAL EVALUATION: No focal neurological abnormalities. IMPRESSION AND PLAN: The patient has altered mental status, most likely due to a recent stroke. He r urine grew mixed gram-positive organisms. Blood cultures 1 out of 2 were positive for staph speci es. She was started on vancomycin. My feeling is that this is probably a contaminant, but will rep eat blood cultures x2. Her chest x-ray was negative. Carotid Doppler study was negative. I will d ictate my findings to Dr. De La Garza and Dr. Quintero. Dictated By: CARLOS TOMLINSON MD, JD/KIMO Conf#: [id number] DID#: [id number]
--- NOTE | 2016-08-30 17:06 | RADRPT ---
PROCEDURE: MR Brain without contrast. CLINICAL INDICATION: Neurologic deficit TECHNIQUE: An MRI of the brain was performed on a high-resolution MR scanner utilizing the followi ng sequences: Sagittal and axial T1 weighted, axial T2 weighted, axial FLAIR, coronal GRE, and axial diffusion weighted with ADC mapping. Images were reviewed high-resolution PACS workstation. No con trast was administered. COMPARISON: Correlation head CT 08/28/2016 FINDINGS: Cortical diffusion restriction with FLAIR hyperintensity of the left inferior frontal lobe and left frontal operculum is identified. No suspicious parenchymal GRE susceptible foci identified. No acute parenchymal hemorrhage or midline shift. Patchy T2/FLAIR cerebral white matter foci of hyperintensi ty identified. Stable ventricle size. Opacified left maxillary sinus. Mucosal thickening of the re maining paranasal sinuses. The bilateral ocular lens are thin which could be due to prior lens repl acement surgery. 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 No MR evidence of parenchymal hemorrhage or midline shift. Chronic microvascular disease. Left maxillary sinusitis. RPTAT: AA .Tang Gordon MD, Date Time Electronically viewed and signed by .Tang Gordon MD, on 08/30/2016 17:06 .T/
[2016-08-30] MEDS ORDERED: VANCOMYCIN 1 GM in NS 250 ML IVPB SCH (20:00)
[2016-08-30] MEDS: SOLIFENACIN 5 MG TAB PO SCH (21:28)
[2016-08-30] MEDS: ATORVASTATIN 80 MG TAB PO SCH (21:28)
[2016-08-31] VITALS (9 sets, daily range): BP systolic 97–129; BP diastolic 51–82; PULSE 81–94; RESP 17–19
[2016-08-31] MEDS: LEVALBUTEROL (NEB) 0.63 MG/3 ML AMP HHN SCH ×3 (00:35→17:37)
[2016-08-31] MEDS: PANTOPRAZOLE (EC) 40 MG TAB PO SCH (05:43)
[2016-08-31] MEDS: DABIGATRAN 150 MG CAP PO SCH (09:35)
[2016-08-31] MEDS: OLANZAPINE 2.5 MG TAB PO SCH (09:36)
[2016-08-31] MEDS: FLUOXETINE 20 MG CAP PO SCH (09:36)
[2016-08-31] MEDS: METOPROLOL 25 MG TAB PO SCH (09:36)
[2016-08-31] MEDS: ASPIRIN 81 MG TAB PO SCH (09:36)
--- NOTE | 2016-08-31 14:04 | PN ---
DATE: 08/31/2016 INFECTIOUS DISEASE PROGRESS NOTE SUBJECTIVE: No acute changes. The patient is sitting comfortably in bed. She had a low-grade feve r this morning at 99.9. No labs this morning. MICROBIOLOGY: Blood culture on admission grew coagulase-negative staph species, 1 out of 2 sets. R epeat blood culture in progress. ANTIMICROBIALS: The patient is on IV vancomycin. PHYSICAL EXAMINATION: GENERAL: Fragile, elderly woman, in no distress. HEENT: Head atraumatic, normocephalic. Sclerae anicteric. Buccal mucosa dry. NECK: Supple, trachea midline. CHEST: Chest rise is symmetrical. Breath sounds diminished. HEART: S1, S2. ABDOMEN: Soft, bowel tones present. EXTREMITIES: No cyanosis. ASSESSMENT: 1. Coagulase-negative Staphylococcus bacteremia, possibly a contaminant. 2. Questionable urinary tract infection, as evidenced per her urinalysis. 3. Acute encephalopathy. Improved. 4. Coronary artery disease and chronic obstructive pulmonary disease. 5. History of right breast cancer, status post mastectomy and chemoradiation. PLAN: The patient remains stable, pending repeat blood cultures. We are going to repeat a urine cu lture, as it showed a contaminated specimen. Dictated By: CARLOS DICKEY DINING SERVICES MANAGER for CARLOS TOMLINSON MD NI/NTS Conf#: [id number] DID#: [id number]
[2016-08-31] MEDS ORDERED: LEVO750T8 PO (14:55)
--- NOTE | 2016-08-31 15:33 | DS ---
DATE OF ADMISSION: 08/28/2016 DATE OF DISCHARGE: 08/31/2016 DISCHARGE DIAGNOSES: 1. Altered mental status. 2. Subacute cerebrovascular accident. 3. Maxillary sinusitis. 4. Atrial fibrillation. 5. Hypertension. 6. Bacteremia. HOSPITAL COURSE: This is an 86-year-old female with a history of atrial fibrillation, but has been off anticoagulation for a few weeks. Was admitted with altered mental status and a head CT that was notable for a subacute CVA in the left inferior frontal lobe and left frontal operculum, as well as left maxillary sinusitis. Patient was monitored for more than 48 hours on telemetry and was noted to be in continuous atrial fibrillation. She was put back on her anticoagulation, Pradaxa 150 mg p.o. b.i.d. The brain MRI confirmed a subacute left frontal cortical infarct and left maxillary sinusitis. The carotid Doppler shows no hemodynamically significant stenosis of the carotids. The echocardiogram that was read by Dr. Senior shows moderate concentric left ventricular hypertrophy with an ejection fraction estimated at 45%. There is trace mitral regurgitation, mild aortic regurgitation, mild tricuspid regurgitation, and trace pulmonic regurgitation. There is an estimated peak PA systolic pressure of 51 mmHg. The patient's blood tests on admission also grew out 1 out of 2 bottles positive for coag negative staph that was resistant to cefazolin and clindamycin , but sensitive to Cipro, doxycycline and levofloxacin, as well as Bactrim. Her urinalysis was positive for a small amount of red cells, white cells, as well as epithelial cells, and her urine culture grew greater than 100,000 colonies of mixed gram-positive organisms, consistent with contamination. The patient had blood cultures and urine cultures repeated on the day after admission and the results are pending at this time; however, she is doing very well and requested to be discharged to home. The patient also had an episode of coughing and shortness of breath the day after admission and a bedside swallow evaluation by nursing appears to be normal. We are waiting for the result of the video swallow study at the time of discharge, but the patient reports that she is feeling normal and her chest x-ray was clear, so the most likely cause of her coughing episode was the sinusitis. For the positive blood cultures, we consulted infectious disease to see if this might be a result of a contaminant. We discontinued the vancomycin and we are planning to discharge the patient home on Levaquin 750 mg p.o. every day for 10 days for the sinusitis , as well as possible urinary tract infection and/or positive blood culture. DISPOSITION: The patient is discharged to her sister's home with a daily attendant. She is in good condition. FOLLOWUP: The patient is to follow up with Dr. Sheri De La Garza within 1 week if possible. Dictated By: SHERI DE LA GARZA MD DP/KIMO Conf#: [id number] DID#: [id number] MTDD
--- NOTE | 2016-08-31 17:53 | PN ---
Date/Time of Note Date/Time of Note DATE: 08/31/16 TIME: 17:53 Assessment/Plan VTE Prophylaxis VTE Prophylaxis Intervention: SCD's Lines/Catheters IV Catheter Type (from Nrsg): Saline Lock Urinary Cath still in place: No Assessment/Plan Assessment/Plan Possible CVA Encephalopathy Paroxysmal atrial flutter/fibrillation Hypertension Dyslipidemia COPD -Patient on anticoagulation: in the past, severe bruising with AC , so was off AC -Continue current therapy - back on pradaxa -bp stable Subjective 24 Hr Interval Summary Free Text/Dictation the aptient with no change Exam/Review of Systems Vital Signs Vitals Vital Signs Date Time Temp Pulse Resp B/P Pulse Ox O2 Delivery O2 Flow Rate FiO2 08/31/16 15:51 98.4 86 19 116/57 93 08/31/16 08:03 21 08/30/16 18:11 2.0 08/30/16 10:14 Nasal Cannula Intake and Output 08/30/16 08/30/16 08/31/16 15:00 23:00 07:00 Intake Total 750 ml 730 ml Balance 750 ml 730 ml Results Result Diagram: 08/30/16 0650 08/30/16 0650 Medications Medications Current Medications Dabigatran (PRADaxa) 150 mg BID PO Last administered on 08/31/16 09:35; Admin Dose 150 MG; Start 08/28/16 at 21:00 Fluoxetine HCl (Prozac) 40 mg DAILY PO Last administered on 08/31/16 09:36; Admin Dose 40 MG; Start 08/29/16 at 09:00 Acetaminophen/ Hydrocodone Bitart ([place] (10/325)) 1 tab TID PRN PO pain; Start 08/28/16 at 18:00 Metoprolol Tartrate (Lopressor) 25 mg BID PO Last administered on 08/31/16 09: 36; Admin Dose 25 MG; Start 08/28/16 at 21:00 Olanzapine (Zyprexa) 2.5 mg DAILY PO Last administered on 08/31/16 09:36; Admin Dose 2.5 MG; Start 08/29/16 at 09:00 Solifenacin (Vesicare) 10 mg QHS PO Last administered on 08/30/16 21:28; Admin Dose 10 MG; Start 08/28/16 at 21:00 Pantoprazole (Protonix Tab) 40 mg BID@06,18 PO Last administered on 08/31/16 05:43; Admin Dose 40 MG; Start 08/28/16 at 21:30 Aspirin (Aspirin) 81 mg DAILY PO Last administered on 08/31/16 09:36; Admin Dose 81 MG; Start 08/30/16 at 09:00 Atorvastatin Calcium (Lipitor) 80 mg DAILY@21 PO Last administered on 21:28; Admin Dose 80 MG; Start 08/29/16 at 21:00 Levofloxacin (Levaquin) 750 mg DAILY@06 GTB ; Start 09/01/16 at 06:00 JED BONILLA MD Aug 31, 2016 17:53
[2016-09-01] MEDS ORDERED: LEVOFLOXACIN 750 MG TABLET GTB SCH (06:00)
== END 2016-08-31 18:15 | disposition home health service (06) | DRG 64 ==
LOC: E/R 12:30 → MS4 15:09
PROVIDERS: ADMIT Internal Medicine; ATTEND Internal Medicine
DX: I63.9 Cerebral infarction, unspecified (principal); G93.40 Encephalopathy, unspecified; I48.0 Paroxysmal atrial fibrillation; N39.0 Urinary tract infection, site not specified; N32.81 Overactive bladder; I10 Essential (primary) hypertension; G25.81 Restless legs syndrome; F32.9 Major depressive disorder, single episode, unspecified; I25.10 Atherosclerotic heart disease of native coronary artery without angina pectoris; E78.5 Hyperlipidemia, unspecified; Z96.651 Presence of right artificial knee joint; J32.0 Chronic maxillary sinusitis; Z87.891 Personal history of nicotine dependence; Z79.02 Long term (current) use of antithrombotics/antiplatelets; Z79.82 Long term (current) use of aspirin; Z85.3 Personal history of malignant neoplasm of breast; Z90.710 Acquired absence of both cervix and uterus; Z90.49 Acquired absence of other specified parts of digestive tract
CPT/HCPCS: 70450; 70551; 71010; 71020; 80048; 80053; 80306; 80307; 81001; 81003; 82140; 82962; 83605; 84484; 85025; 85610; 85651; 85730; 87040; 87086; 92610; 93005; 93306; 93880; 94640; 94664; 97163; J3370; J7040; J7050